=== PATIENT | female | born 1950 | race African-American/Black ===

== ENCOUNTER 2016-12-28 12:27 | Emergency (ER) | payer MEDICARE, MEDICAID ==
--- NOTE | 2016-12-28 12:39 | ER Document Report ---
ED Medical Screen (RME) - General Stated Complaint: RIGHT LEG PAIN Notes: Patient complains of pain and swelling at stump surgical site. 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 Patient states that she has noticed some drainage from it. She was sent over from dialysis after being dialyzed this morning. Patient denies fever. Patient is diabetic, has hypertension, and has renal disease. Patient unsure which stage, and does not produce urine. I have greeted and performed a rapid initial assessment of this patient. A comprehensive ED assessment and evaluation of the patient, analysis of test results and completion of the medical decision making process will be conducted by additional ED providers. - Related Data Allergies/Adverse Reactions: LIZZY Inhibitors Allergy (Verified 12/28/16 12:37)
[2016-12-28 14:09] LABS: ABSOLUTE LYMPHOCYTES (AUTO) 0.7 10^3/uL (0.5-4.7); ABSOLUTE MONOCYTES (AUTO) 0.4 10^3/uL (0.1-1.4); ABSOLUTE NEUT (AUTO) 2.1 10^3/uL (1.7-8.2); BASOPHILS % (AUTO) 0.6 % (0-2); EOSINOPHILS % (AUTO) 0.8 % (0-6); HEMATOCRIT 37.1 % (36.0-47.0); HEMOGLOBIN 11.8 g/dL (12.0-15.5); HGB HCT DIFFERENCE -1.7; LYMPHOCYTES % (AUTO) 21.9 % (13-45); MEAN CORPUSCULAR HEMOGLOBIN 21.5 pg (27.0-33.4); MEAN CORPUSCULAR HGB CONC 31.8 g/dL (32.0-36.0); MEAN CORPUSCULAR VOLUME 68 fl (80-97); MONOCYTES % (AUTO) 12.2 % (3-13); RED BLOOD COUNT 5.49 10^6/uL (3.72-5.28); RED CELL DISTRIBUTION WIDTH 21.2 % (11.5-14.0); SEGMENTED NEUTROPHILS % (AUTO) 64.5 % (42-78); WHITE BLOOD COUNT 3.3 10^3/uL (4.0-10.5)
[2016-12-28 14:26] LABS: ALANINE AMINOTRANSFERASE 24 U/L (9-52); ALBUMIN 4.2 g/dL (3.5-5.0); ALKALINE PHOSPHATASE 317 U/L (38-126); ANION GAP 17 (5-19); ASPARTATE AMINO TRANSFERASE 27 U/L (14-36); BILIRUBIN,TOTAL 1.5 mg/dL (0.2-1.3); BLOOD UREA NITROGEN 8 mg/dL (7-20); CALCIUM 8.3 mg/dL (8.4-10.2); CARBON DIOXIDE 28 mmol/L (22-30); CHLORIDE 95 mmol/L (98-107); CREATININE RESULT 1.81 mg/dL (0.52-1.25); GLUCOSE 111 mg/dL (75-110); POTASSIUM 3.2 mmol/L (3.6-5.0); SODIUM 139.6 mmol/L (137-145); TOTAL PROTEIN 7.8 g/dL (6.3-8.2)
--- NOTE | 2016-12-28 15:48 | ER Document Report ---
ED Extremity Problem, Lower <MONROE PAZ - Last Filed: 12/28/16 19:02> - General Mode of Arrival: Wheelchair Information source: Patient, Relative TRAVEL OUTSIDE OF THE [place] IN LAST 30 DAYS: No - HPI Patient complains to provider of: Pain, Swelling Location: Knee - right Occurred: Other - see HPI note <ADIS BECERRA - Last Filed: 12/28/16 19:44> - General Chief Complaint: Leg Pain Stated Complaint: RIGHT LEG PAIN Notes: Patient is a 66 year old female presenting to the emergency department for pain and swelling to her right BKA. Patient had BKA surgery on 10/18/16. Patient states that a tight wrapping was placed on her leg and was causing her some pain as she felt it become tighter. This was removed on and she has had increased pain, soreness, and swelling since. Patient has dialysis on MWF and went to her dialysis today. Patient was sent to the ED afterwards because of her pain. Patient had some gangrene infection in her toes which is why she had the BKA completed. Patient is concerned for another possible infection. Patient denies any fevers. Patient has her wound dressing changed regularly and the last change was yesterday. Patient was recently seen for pneumonia and is currently taking Levaquin. Patient is also on Coumadin. (ADIS BECERRA) - Related Data Allergies/Adverse Reactions: LIZZY Inhibitors Allergy (Verified 12/28/16 12:37) Past Medical History - General Information source: Patient, Relative - Social History Smoking Status: Unknown if Ever Smoked Family History: None - Past Medical History Cardiac Medical History: Reports: Hx Hypertension Endocrine Medical History: Reports: Hx Diabetes Mellitus Type 2 Renal/ Medical History: Reports: Hx End Stage Renal Disease Past Surgical History: Reports: Hx Orthopedic Surgery - right BKA 10/18/16, Hx Valve Replacement - x2 <ADIS BECERRA - Last Filed: 12/28/16 19:44> Review of Systems - Review of Systems Constitutional: No symptoms reported. denies: Fever EENT: No symptoms reported Cardiovascular: No symptoms reported Respiratory: No symptoms reported Gastrointestinal: No symptoms reported Genitourinary: No symptoms reported Female Genitourinary: No symptoms reported Musculoskeletal: See HPI Skin: No symptoms reported Hematologic/Lymphatic: No symptoms reported Neurological/Psychological: No symptoms reported -: Yes All other systems reviewed and negative <ADIS BECERRA - Last Filed: 12/28/16 19:44> Physical Exam <MONROE PAZ - Last Filed: 12/28/16 19:02> - Vital signs Interpretation: Hypotensive <ADIS BECERRA - Last Filed: 12/28/16 19:44> - Vital signs Vitals: Temp Pulse Resp BP Pulse Ox 98.0 F 81 16 99/63 L 100 12/28/16 12:34 12/28/16 12:34 12/28/16 12:34 12/28/16 12:34 12/28/16 12:34 - Notes Notes: GENERAL: Well-appearing, well-nourished no acute distress HEAD: Atraumatic, normocephalic EYES: Anicteric without conjunctival injection ENT: Normal to inspection, moist mucous membranes NECK: Supple with grossly normal range of motion LUNGS: Breath sounds clear to auscultation bilaterally and equal. No wheezes rales or rhonchi HEART: Regular rate and rhythm. Mechanical heart valve sounds noted which are consistent with surgical history. ABDOMEN: Normal to inspection EXTREMITIES: Right sided amputated stump that is well healing. In the middle of the incision there is some mild dehiscence (approx. 1 cm) with granulation tissue and minimal serous drainage. Minimal surrounding erythema. No proximal streaking redness or warmth. NEUROLOGICAL: Grossly normal with symmetrical movements PSYCH: Normal mood, normal affect SKIN: Warm, Dry (ADIS BECERRA) Course - Laboratory Result Diagrams: 12/28/16 13:43 12/28/16 13:43 <MONROE PAZ - Last Filed: 12/28/16 19:02> - Laboratory Result Diagrams: 12/28/16 13:43 12/28/16 13:43 <ADIS BECERRA - Last Filed: 12/28/16 19:44> - Re-evaluation Re-evalutation: 12/28/16 19:01 The patient's wound looks relatively good overall there is a small portion appears to be developing some infection which we cultured. She is on Levaquin but is missing staph coverage so we will be adding clindamycin. She will need daily dressing changes and close watching. Discussed this with the patient and family and they are comfortable with this as well as follow-up. A dressing was applied here (MONROE PAZ) - Vital Signs Vital signs: Temp Pulse Resp BP Pulse Ox 98.0 F 80 16 110/67 98 12/28/16 12:34 12/28/16 17:17 12/28/16 17:17 12/28/16 17:17 12/28/16 17:17 - Laboratory Laboratory results interpreted by me: 12/28/16 12/28/16 13:43 13:43 WBC 3.3 L RBC 5.49 H Hgb 11.8 L MCV 68 L MCH 21.5 L MCHC 31.8 L RDW 21.2 H Potassium 3.2 L Chloride 95 L Creatinine 1.81 H Est GFR ( Amer) 34 L Est GFR (Non-Af Amer) 28 L Glucose 111 H Calcium 8.3 L Total Bilirubin 1.5 H Direct Bilirubin 1.0 H Alkaline Phosphatase 317 H Discharge <MONROE PAZ - Last Filed: 12/28/16 19:02> <ADIS BECERRA - Last Filed: 12/28/16 19:44> - Discharge Clinical Impression: Wound with infection determined by examination Condition: Good Disposition: HOME, SELF-CARE Instructions: Wound Infection ([facility]) Additional Instructions: Take all of the antibiotics as directed. Please have reevaluated on a daily basis as well at the completion of the antibiotics to ensure he did not need further. Return for worsening redness, fever or other systemic symptoms. Continue your Levaquin until completed. Prescriptions: Clindamycin HCl [Cleocin 300 mg Capsule] 300 mg PO Q6 #30 capsule Scribe Attestation: 12/28/16 19:04 I personally performed the services described in the documentation, reviewed and edited the documentation which was dictated to the scribe in my presence, and it accurately records my words and actions. (MONROE PAZ) Scribe Documentation - Scribe Written by Iftikhar:: Adis Becerra 12/28/16 16:55 acting as scribe for :: Fab <ADIS BECERRA - Last Filed: 12/28/16 19:44>
[2016-12-28] MEDS ORDERED: CLINDAMYCIN HCL 150 MG CAPSULE PO ONE (19:01)
[2016-12-28 19:59] VITALS: BP 104/69
== END 2016-12-28 19:33 | disposition home or self-care (01) ==
LOC: ER 12:27
DX: T81.4XXA Infection following a procedure, initial encounter (principal); M79.604 Pain in right leg; Z89.511 Acquired absence of right leg below knee; E11.22 Type 2 diabetes mellitus with diabetic chronic kidney disease; I12.0 Hypertensive chronic kidney disease with stage 5 chronic kidney disease or end stage renal disease; N18.6 End stage renal disease; Z99.2 Dependence on renal dialysis; Z95.2 Presence of prosthetic heart valve
CPT/HCPCS: 99283; 36415; 87070; 87205; 85025; 87075; 87077; 80053; 87186; A9270